=== PATIENT | female | born 1990 | race Caucasian/White ===

== ENCOUNTER 2016-10-07 18:42 | Emergency (ER) | payer OTHER ==
--- NOTE | 2016-10-07 19:17 | ER Document Report ---
ED Medical Screen (RME) - General Chief Complaint: Chest Pain Stated Complaint: CHEST PAIN TRAVEL OUTSIDE OF THE [place] IN LAST 30 DAYS: No - HPI Notes: 10/07/16 19:16 Patient with substernal chest pain ongoing since last night sent from urgent care to rule out PE. - Related Data Allergies/Adverse Reactions: No Known Allergies Allergy (Verified 10/07/16 18:48) Past Medical History Endocrine Medical History: Reports: Hx Diabetes Mellitus Type 1 Renal/ Medical History: Denies: Hx Peritoneal Dialysis Review of Systems - Review of Systems Cardiovascular: Chest pain -: Yes All other systems reviewed and negative Physical Exam - Vital signs Vitals: Temp Pulse Resp BP Pulse Ox 98.4 F 88 16 112/69 100 10/07/16 18:48 10/07/16 18:48 10/07/16 18:48 10/07/16 18:48 10/07/16 18:48 - Respiratory Respiratory status: No respiratory distress Chest status: Nontender Breath sounds: Normal Chest palpation: Normal Course - Vital Signs Vital signs: Temp Pulse Resp BP Pulse Ox 98.4 F 88 16 112/69 100 10/07/16 18:48 10/07/16 18:48 10/07/16 18:48 10/07/16 18:48 10/07/16 18:48
[2016-10-07 19:31] LABS: ABSOLUTE EOSINOPHILS # (AUTO) 0.1 10^3/uL (0.0-0.6); ABSOLUTE LYMPHOCYTES (AUTO) 2.4 10^3/uL (0.5-4.7); ABSOLUTE MONOCYTES (AUTO) 0.6 10^3/uL (0.1-1.4); ABSOLUTE NEUT (AUTO) 4.2 10^3/uL (1.7-8.2); BASOPHILS % (AUTO) 0.4 % (0-2); EOSINOPHILS % (AUTO) 1.5 % (0-6); HEMATOCRIT 40.9 % (36.0-47.0); HEMOGLOBIN 13.8 g/dL (12.0-15.5); HGB HCT DIFFERENCE 0.5; MEAN CORPUSCULAR HGB CONC 33.8 g/dL (32.0-36.0); MEAN CORPUSCULAR VOLUME 89 fl (80-97); RED BLOOD COUNT 4.61 10^6/uL (3.72-5.28); RED CELL DISTRIBUTION WIDTH 13.2 % (11.5-14.0); SEGMENTED NEUTROPHILS % (AUTO) 57.1 % (42-78); WHITE BLOOD COUNT 7.4 10^3/uL (4.0-10.5)
[2016-10-07 19:36] LABS: PROTHROMBIN TIME 11.8 SEC (11.4-15.4)
[2016-10-07 19:37] LABS: PARTIAL THROMBOPLASTIN TIME 27.5 SEC (23.5-35.8)
[2016-10-07 19:48] LABS: ALANINE AMINOTRANSFERASE 25 U/L (9-52); ALBUMIN 4.3 g/dL (3.5-5.0); ALKALINE PHOSPHATASE 41 U/L (38-126); ANION GAP 10 (5-19); ASPARTATE AMINO TRANSFERASE 21 U/L (14-36); BILIRUBIN,DIRECT 0.1 mg/dL (0.0-0.4); BILIRUBIN,TOTAL 0.3 mg/dL (0.2-1.3); BLOOD UREA NITROGEN 14 mg/dL (7-20); CALCIUM 9.4 mg/dL (8.4-10.2); CARBON DIOXIDE 29 mmol/L (22-30); CHLORIDE 103 mmol/L (98-107); CREATINE KINASE 59 U/L (30-135); CREATININE RESULT 0.64 mg/dL (0.52-1.25); GLUCOSE 287 mg/dL (75-110); POTASSIUM 4.5 mmol/L (3.6-5.0); TOTAL PROTEIN 6.7 g/dL (6.3-8.2)
[2016-10-07 19:55] LABS: D-DIMER < 0.27 ug/mL (0.00-0.50)
[2016-10-07 20:00] LABS: CREATINE KINASE MB 0.22 ng/mL (<4.55)
[2016-10-07 20:03] LABS: TROPONIN I < 0.012 ng/mL
--- NOTE | 2016-10-07 20:19 | ER Document Report ---
ED General - General Chief Complaint: Chest Pain Stated Complaint: CHEST PAIN Mode of Arrival: Ambulatory Information source: Patient Notes: Patient is a 26 year old female who presents with intermittent mid sub-sternal chest pain that started last night suddenly when it woke her up out of her sleep. She states she has never had this pain before. Denies any radiation of pain. Pain at its worst is rated 5/10, currently she rates pain as 2/10. She states pain was worse while raking in her yard earlier today. She has not taken any medication for this. Denies any diaphoresis, SOB, n/v/d. Denies any recent travel, is on oral contraception. Was seen at urgent care today and advised to come to ED to rule out PE. TRAVEL OUTSIDE OF THE [place] IN LAST 30 DAYS: No - Related Data Allergies/Adverse Reactions: No Known Allergies Allergy (Verified 10/07/16 18:48) Past Medical History - Social History Smoking Status: Never Smoker Family History: Reviewed & Not Pertinent Patient has suicidal ideation: No Patient has homicidal ideation: No Endocrine Medical History: Reports: Hx Diabetes Mellitus Type 1 Renal/ Medical History: Denies: Hx Peritoneal Dialysis Review of Systems - Review of Systems Constitutional: See HPI EENT: No symptoms reported Cardiovascular: See HPI Respiratory: See HPI Gastrointestinal: No symptoms reported Genitourinary: No symptoms reported Female Genitourinary: No symptoms reported Musculoskeletal: No symptoms reported Skin: No symptoms reported Hematologic/Lymphatic: No symptoms reported Neurological/Psychological: No symptoms reported Physical Exam - Vital signs Vitals: Temp Pulse Resp BP Pulse Ox 98.4 F 88 16 112/69 100 10/07/16 18:48 10/07/16 18:48 10/07/16 18:48 10/07/16 18:48 10/07/16 18:48 Interpretation: Normal - Notes Notes: PHYSICAL EXAM: CONSTITUTIONAL: Alert and oriented, well-appearing and in no acute distress. Not hypoxic, no tachycardia, VSS. HENT: Normocephalic, atraumatic. Trachea midline. Uvula midline. Moist mucous membranes. EYES: Pupils equal round and reactive to light, EOM intact. Sclera anicteric, conjunctiva are normal. No entrapment. NECK: supple without lymphadenopathy. No midline tenderness or paraspinous muscle spasms. No step-offs or deformities. ROM intact. HEART: Regular rate and rhythm without murmurs, rubs or gallops. LUNGS: CTAB and equal. No wheezes, rales or rhonchi. Chest wall non-tender to palpation. GI: Normactive bowel sounds. Nontender, non-distended. No organomegaly. no CVAT. BACK: nontender, no paraspinous spasm, 5+/5 strengths, DTRs 2+, SLR -. EXTREMITIES: Normal range of motion, no pitting edema. No cyanosis. Cap Refill < 3 seconds. Negative Azael's sign. NEURO: Cranial nerves grossly intact. Normal sensory/motor exams. PSYCH: Normal mood, normal affect. SKIN: Warm and dry. Normal turgor. No rashes or lesions noted. Course - Re-evaluation Re-evalutation: 10/07/16 20:19 Patient seen and examined. Non-reproducible chest pain on exam. Will rule out PE with lab work and d-dimer. 10/07/16 21:00 Review of lab results reveals negative d-dimer and otherwise unremarkable. EKG with NSR and no ST elevation. CXR negative for acute findings. Discussed results with patient - recommended NSAIDs as needed for pain. Patient is very well in appearance, vitals within normal limits. Low clinical suspicion for ACS given clinical history, exam, EKG without ST elevations or depressions, and negative initial troponin. HEART score less than or equal to 3. PE also seems unlikely given clinical history, absence of tachycardia or dyspnea. Well's score of 0. CXR without evidence of pneumothorax or pneumonia. No widened mediastinum. Aortic dissection also seems unlikely given history, symmetric pulses, CXR and vitals. At this time, will discharge with return precautions and follow-up recommendations. Verbal discharge instructions given at the bedside and opportunity for questions given. Medication warnings reviewed. Patient is in agreement with this plan and has verbalized understanding of return precautions and the need for primary care follow-up in the next 24-72 hours. - Vital Signs Vital signs: Temp Pulse Resp BP Pulse Ox 98.4 F 83 16 107/55 L 99 10/07/16 18:48 10/07/16 20:35 10/07/16 20:35 10/07/16 20:35 10/07/16 20:35 - Laboratory Result Diagrams: 10/07/16 19:20 10/07/16 19:20 Laboratory results interpreted by me: 10/07/16 19:20 Glucose 287 H - Diagnostic Test Radiology reviewed: Image reviewed, Reports reviewed Discharge - Discharge Clinical Impression: Chest wall pain, Non-cardiac chest pain Condition: Stable Disposition: HOME, SELF-CARE Additional Instructions: CHEST PAIN OF UNCLEAR CAUSE: The exact cause of your chest pain isn't clear. Fortunately, there is no evidence of a dangerous medical condition. Further testing may be required to find the source of the pain. Most often, we find that this pain is coming from the chest wall -- the muscles or rib joints in the chest. But chest pain can come from the lung and lung lining, the esophagus, the heart valves or heart lining, and even the stomach or gallbladder. Rest. Eat lightly until the pain is gone. We may prescribe medicine for pain and inflammation. You should call the physician immediately if the pain radiates to the shoulder, jaw or arms; if you start to run a fever or develop a cough; or if you develop shortness of breath, or other new or alarming symptoms. NORMAL EXAM AND WORKUP: At this time, your examination and workup show no significant abnormality. No significant abnormal physical findings were noted. All laboratory, EKG, and imaging (x-ray, CT scans, ultrasound) studies that were ordered show no significant abnormality. Although your examination and all studies that were ordered showed no significant abnormal finding, there are no examinations and no studies that are 100% accurate. There is always the possibility that some abnormality could exist and not be detected with physical examination or within the limits and capabilities of laboratory and other studies. You should return or follow up as you were instructed on your visit today for further evaluation if your symptoms do not resolve. CHEST WALL PAIN: Your chest pain may be coming from the chest wall. This is often caused by straining the muscles or joints in the chest during physical activity, direct trauma, coughing, or vigorous vomiting. Persons with arthritis are especially prone to this type of pain, due to inflammation of the cartilage joints near the breast bone. Occasionally, no cause can be found. Rest from strenuous physical activity. This kind of chest pain is usually made worse by movement of the chest. Depending on the symptoms, we may prescribe medicine for pain, muscle relaxation, and antiinflammatory effects. If the pain is new, and seems to be due to muscle strain, cold packs can help. Otherwise, apply gentle warmth to the painful area for 15 minutes every hour or two. You should call contact the doctor immediately if things change. Further evaluation is needed if you develop a fever or cough, if the nature of the pain changes, or if you become short of breath. FOLLOW-UP CARE: If you have been referred to a physician for follow-up care, call the physician s office for an appointment as you were instructed or within the next two days. If you experience worsening or a significant change in your symptoms, notify the physician immediately or return to the Emergency Department at any time for re-evaluation. Prescriptions: Ibuprofen [Motrin 600 Mg Tablet] 600 mg PO TID #15 tablet Referrals: LOBO ROBINS MD [Primary Care Provider] - Follow up as needed
[2016-10-07 20:37] VITALS: BP 107/55
--- NOTE | 2016-10-07 20:46 | EKG REPORT ---
SEVERITY:- NORMAL ECG - SINUS RHYTHM : Confirmed by: Clinton Goldberg 07-Oct-2016 20:45:49
== END 2016-10-07 20:35 | disposition home or self-care (01) ==
LOC: ER 18:42
DX: R07.89 Other chest pain (principal)
CPT/HCPCS: 36415; 71020; 80053; 82550; 82553; 84484; 85025; 85379; 85610; 85730; 93005; 93010; 99285

== ENCOUNTER 2018-12-12 22:12 | Emergency (ER) | payer OTHER ==
[2018-12-12 23:34] VITALS: BP 107/66
--- NOTE | 2018-12-13 00:39 | ER Document Report ---
ED Medical Screen (RME) - General Chief Complaint: Skin Problem Stated Complaint: SWELLING Time Seen by Provider: 12/13/18 00:36 Primary Care Provider: LOBO ROBINS MD [Primary Care Provider] - Follow up as needed Mode of Arrival: Ambulatory Information source: Patient Notes: Patient reports that she was stung by a wasp 2 days ago. Patient states that initially she did not have any significant problems and yesterday that she had some pruritus but no redness. Patient states that today she developed redness that has gradually worsened throughout the day. Patient was concerned because she is an insulin-dependent diabetic. Patient states that her blood sugars have been running slightly elevated. Patient denies any recent injuries to the foot. I have greeted and performed a rapid initial assessment of this patient. A comprehensive ED assessment and evaluation of the patient, analysis of test results and completion of the medical decision making process will be conducted by additional ED providers. TRAVEL OUTSIDE OF THE [place] IN LAST 30 DAYS: No - Related Data Allergies/Adverse Reactions: No Known Allergies Allergy (Verified 10/07/16 18:48) Past Medical History Endocrine Medical History: Reports: Hx Diabetes Mellitus Type 1 Renal/ Medical History: Denies: Hx Peritoneal Dialysis Physical Exam - Vital signs Vitals: Temp Pulse Resp BP Pulse Ox 98.1 F 57 L 18 107/66 100 12/12/18 23:32 12/12/18 23:32 12/12/18 23:32 12/12/18 23:32 12/12/18 23:32 - General General appearance: Appears well Notes: Left great toe erythema and 1+ edema. Course - Vital Signs Vital signs: Temp Pulse Resp BP Pulse Ox 98.1 F 57 L 18 107/66 100 12/12/18 23:32 12/12/18 23:32 12/12/18 23:32 12/12/18 23:32 12/12/18 23:32 Doctor's Discharge - Discharge Referrals: LOBO ROBINS MD [Primary Care Provider] - Follow up as needed
[2018-12-13 01:07] LABS: ABSOLUTE EOSINOPHILS # (AUTO) 0.5 10^3/uL (0.0-0.6); ABSOLUTE LYMPHOCYTES (AUTO) 2.5 10^3/uL (0.5-4.7); ABSOLUTE MONOCYTES (AUTO) 0.5 10^3/uL (0.1-1.4); ABSOLUTE NEUT (AUTO) 2.1 10^3/uL (1.7-8.2); BASOPHILS % (AUTO) 0.5 % (0-2); EOSINOPHILS % (AUTO) 9.6 % (0-6); HEMATOCRIT 43.6 % (36.0-47.0); HEMOGLOBIN 14.4 g/dL (12.0-15.5); LYMPHOCYTES % (AUTO) 44.4 % (13-45); MEAN CORPUSCULAR HEMOGLOBIN 29.3 pg (27.0-33.4); MEAN CORPUSCULAR VOLUME 89 fl (80-97); PLATELET COUNT 178 10^3/uL (150-450); RED BLOOD COUNT 4.91 10^6/uL (3.72-5.28); RED CELL DISTRIBUTION WIDTH 12.5 % (11.5-14.0); SEGMENTED NEUTROPHILS % (AUTO) 37.5 % (42-78); TOTAL CELLS COUNTED % (AUTO) 100 %; WHITE BLOOD COUNT 5.7 10^3/uL (4.0-10.5)
[2018-12-13 01:37] LABS: ALANINE AMINOTRANSFERASE 26 U/L (9-52); ALBUMIN 4.7 g/dL (3.5-5.0); ALKALINE PHOSPHATASE 49 U/L (38-126); ANION GAP 8 (5-19); ASPARTATE AMINO TRANSFERASE 25 U/L (14-36); BILIRUBIN,DIRECT 0.2 mg/dL (0.0-0.4); BILIRUBIN,TOTAL 0.3 mg/dL (0.2-1.3); BLOOD UREA NITROGEN 16 mg/dL (7-20); CARBON DIOXIDE 29 mmol/L (22-30); CHLORIDE 102 mmol/L (98-107); GLUCOSE 152 mg/dL (75-110); POTASSIUM 4.5 mmol/L (3.6-5.0); SODIUM 138.9 mmol/L (137-145); TOTAL PROTEIN 7.3 g/dL (6.3-8.2)
--- NOTE | 2018-12-13 04:11 | ER Document Report ---
ED General - General Chief Complaint: Skin Problem Stated Complaint: SWELLING Time Seen by Provider: 12/13/18 00:36 Primary Care Provider: LOBO ROBINS MD [Primary Care Provider] - Follow up in 3-5 days Mode of Arrival: Ambulatory Notes: Patient is a 28-year-old female presents emergency department with a chief complaint of right great toe pain. She was stung by wasp 2 days ago on her great toe and since then she has had redness and itching. She has been putting topical Benadryl to help with it she noticed. She says it helps a little bit. Patient is a type I diabetic, and she is concerned about possible infection. She is able to walk. She has good range of motion of her right great toe. TRAVEL OUTSIDE OF THE [place] IN LAST 30 DAYS: No - Related Data Allergies/Adverse Reactions: No Known Allergies Allergy (Verified 10/07/16 18:48) Past Medical History - General Information source: Patient - Social History Smoking Status: Unknown if Ever Smoked Family History: Reviewed & Not Pertinent Patient has suicidal ideation: No Patient has homicidal ideation: No Endocrine Medical History: Reports: Hx Diabetes Mellitus Type 1 Renal/ Medical History: Denies: Hx Peritoneal Dialysis Review of Systems - Review of Systems Notes: REVIEW OF SYSTEMS: CONSTITUTIONAL : Denies recent illness. Denies recent unintentional weight loss. Denies fever, chills, or sweats. EENT: Denies eye, ear, throat, or mouth pain, discharge, or symptoms. Denies nasal or sinus congestion. CARDIOVASCULAR: Denies chest pain. RESPIRATORY: Denies shortness of breath, cough, congestion, difficulty breathing, or wheezing. GASTROINTESTINAL: Denies nausea, vomiting, and diarrhea. Denies abdominal pain. Denies constipation. GENITOURINARY: Denies difficulty urinating, burning, blood in urine, urgency or frequency. MUSCULOSKELETAL: Denies neck and back pain. Denies joint pain or swelling. SKIN: See HPI HEMATOLOGIC : Denies easy bruising or bleeding. LYMPHATIC: Denies swollen, painful, enlarged glands. NEUROLOGICAL: Denies no numbness or tingling denies weakness. Denies headache. Denies altered mental status. Denies alteration in speech. PSYCHIATRIC: Denies stress, anxiety, alteration in sleep patterns, or depression. All other systems reviewed and negative. Physical Exam - Vital signs Vitals: Temp Pulse Resp BP Pulse Ox 98.1 F 57 L 18 107/66 100 12/12/18 23:32 12/12/18 23:32 12/12/18 23:32 12/12/18 23:32 12/12/18 23:32 - Notes Notes: PHYSICAL EXAMINATION: GENERAL: Appears well, healthy, well-nourished, no acute distress. HEAD: Normocephalic, atraumatic. EYES: PERRL, conjunctiva normal, all extraocular movements intact, sclera nonicteric ENT: Moist mucous membranes. NECK: Supple, no noticeable swelling, redness, rash. Normal range of motion. LUNGS: Equal breath sounds bilaterally and clear to auscultation. No wheezes rales or rhonchi. CARDIOVASCULAR: S1-S2, regular rate, regular rhythm. Radial pulses 2+, normal. ABDOMEN: Normoactive bowel sounds. Soft, nontender, no guarding, no rebound tenderness, and no masses palpated. EXTREMITIES: Normal strength and range of motion, no pitting or edema. No cyanosis. NEUROLOGICAL: Moves all extremities upon command. Strength 5/5 in all extremities. PSYCH: Normal mood, normal affect. SKIN: Warm, dry. No lesions, ulcerations noted. Normal skin turgor. Cellulitis noted to the left great toe area Course - Re-evaluation Re-evalutation: 12/13/18 04:22 Patient's physical exam is consistent with cellulitis of the left great toe. Her labs that were ordered in triage are unremarkable. She will be started on Keflex. No fluctuance noted or concerning possible abscess on exam. She will follow-up with her primary care provider in regards to this visit. They are in agreement with this plan. Verbal discharge instructions were given to the patient. They verbalized understanding. They are stable for discharge. - Vital Signs Vital signs: Temp Pulse Resp BP Pulse Ox 98.1 F 57 L 18 107/66 100 12/12/18 23:32 12/12/18 23:32 12/12/18 23:32 12/12/18 23:32 12/12/18 23:32 - Laboratory Result Diagrams: 12/13/18 00:51 12/13/18 00:51 Laboratory results interpreted by me: 12/13/18 12/13/18 00:51 00:51 Seg Neutrophils % 37.5 L Eosinophils % 9.6 H Glucose 152 H Discharge - Discharge Clinical Impression: Cellulitis Qualifiers: Site of cellulitis: extremity Site of cellulitis of extremity: toe Laterality: left Qualified Code(s): L03.032 - Cellulitis of left toe Condition: Stable Disposition: HOME, SELF-CARE Additional Instructions: The rash is likely due to infection of your skin. You need to take the ant ibiotics as prescribed. Do not stop even if the rash goes away until you have completed all the antibiotics. The area of redness was traced out here in the emergency department with a marking pen. You need to return to emergency department if the redness spreads outside of this area by more than 2 cm in any direction. You should also return if you develop fevers with temperature greater than 101, persistent vomiting, worsening pain, or have any other symptoms that are concerning to you. You can take Benadryl 50 mg every 6 hours as needed for any itchiness. Prescriptions: Cephalexin Monohydrate [Keflex 500 mg Capsule] 500 mg PO Q6H 7 Days #28 capsule Forms: Return to Work Referrals: LOBO ROBINS MD [Primary Care Provider] - Follow up in 3-5 days
[2018-12-13] MEDS ORDERED: CEPHALEXIN 500 MG CAPSULE PO ONE (04:27)
== END 2018-12-13 04:40 | disposition home or self-care (01) ==
LOC: ER 22:12
DX: L03.032 Cellulitis of left toe (principal); T63.461A Toxic effect of venom of wasps, accidental (unintentional), initial encounter; M79.674 Pain in right toe(s); E10.9 Type 1 diabetes mellitus without complications
CPT/HCPCS: 36415; 80053; 84703; 85025; 99283

== ENCOUNTER → 2019-12-22 | Outpatient (CLI) | payer OTHER ==
--- NOTE | 2019-12-23 08:18 | RADIOLOGY REPORT (SQ) ---
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 TECHNIQUE: Dynamic and static fairchild-scale images acquired of the thyroid gland. Selected additional c olor/power Doppler images recorded. All images stored to PACS. LIMITATIONS: None. FINDINGS: RIGHT LOBE: The right lobe of the thyroid gland measures 5.3 x 1.4 x 1.4 cm, normal size. Homogeneous echotexture. No cystic or solid masses. LEFT LOBE: The left lobe of the thyroid gland measures 5.7 x 1.6 x 1.5 cm, within the upper limits o f normal for size. Homogeneous echotexture. No cystic or solid masses. ISTHMUS: The isthmus measures 5.0 mm in AP diameter, at the upper limits of normal. Homogeneous ech otexture. No cystic or solid masses. OTHER: No other significant finding. IMPRESSION: 1. Examination is unremarkable sonographically. TECHNICAL DOCUMENTATION: JOB ID: [id number] 2010 [employer]- All Rights Reserved Reading location - IP/workstation name: [email or web address]
== END ==
LOC: RAD 16:23
PROVIDERS: ATTEND Clinical Neuropsychologist
DX: E10.9 Type 1 diabetes mellitus without complications (principal); E06.3 Autoimmune thyroiditis; N91.2 Amenorrhea, unspecified; R19.7 Diarrhea, unspecified; R63.4 Abnormal weight loss; R53.83 Other fatigue; E55.9 Vitamin D deficiency, unspecified; E78.00 Pure hypercholesterolemia, unspecified; R68.82 Decreased libido
CPT/HCPCS: 76536

== ENCOUNTER 2020-05-26 11:50 | Emergency (ER) | payer OTHER ==
[2020-05-26] MEDS ORDERED: ONDANSETRON HCL INJ/PF 4 MG/2 ML SDV IV ONE ×2 (12:22→14:45)
[2020-05-26] MEDS ORDERED: NORMAL SALINE 1000 ML 1,000 ML IV ONE (12:22)
--- NOTE | 2020-05-26 12:24 | ER Document Report ---
ED Medical Screen (RME) - General Stated Complaint: VOMITING,FEVER,DIARRHEA Time Seen by Provider: 05/26/20 12:18 Primary Care Provider: LOBO ROBINS MD [Primary Care Provider] - Follow up as needed Notes: Patient presents complaining of nausea vomiting diarrhea today with vomiting x3 episodes with diarrhea x5 episodes. Patient reports low-grade fever last night of 99.5. Patient denies any cough or cold symptoms. Patient denies any concerns about . Patient does have a history of diabetes and states that her blood sugar has been elevated recently. I have greeted and performed a rapid initial assessment of this patient. A comprehensive ED assessment and evaluation of the patient, analysis of test results and completion of the medical decision making process will be conducted by additional ED providers. TRAVEL OUTSIDE OF THE [place] IN LAST 30 DAYS: No - Related Data Allergies/Adverse Reactions: No Known Allergies Allergy (Verified 10/07/16 18:48) Past Medical History Endocrine Medical History: Reports: Hx Diabetes Mellitus Type 1 Renal/ Medical History: Denies: Hx Peritoneal Dialysis Physical Exam - Vital signs Vitals: Temp Pulse Resp BP Pulse Ox 97.8 F 63 18 93/53 L 100 05/26/20 11:56 05/26/20 11:56 05/26/20 11:56 05/26/20 11:56 05/26/20 11:56 - General General appearance: Appears well, Alert Notes: Nontoxic appearance, abdomen not distended Course - Vital Signs Vital signs: Temp Pulse Resp BP Pulse Ox 97.8 F 63 18 93/53 L 100 05/26/20 11:56 05/26/20 11:56 05/26/20 11:56 05/26/20 11:56 05/26/20 11:56 Doctor's Discharge - Discharge Referrals: LOBO ROBINS MD [Primary Care Provider] - Follow up as needed
[2020-05-26 15:06] LABS: ABSOLUTE LYMPHOCYTES (AUTO) 0.7 10^3/uL (0.5-4.7); ABSOLUTE MONOCYTES (AUTO) 0.5 10^3/uL (0.1-1.4); ABSOLUTE NEUT (AUTO) 11.5 10^3/uL (1.7-8.2); BASOPHILS % (AUTO) 0.1 % (0-2); HEMATOCRIT 38.7 % (36.0-47.0); HEMOGLOBIN 12.9 g/dL (12.0-15.5); LYMPHOCYTES % (AUTO) 5.7 % (13-45); MEAN CORPUSCULAR HGB CONC 33.3 g/dL (32.0-36.0); MEAN CORPUSCULAR VOLUME 90 fl (80-97); MONOCYTES % (AUTO) 3.8 % (3-13); PLATELET COUNT 195 10^3/uL (150-450); RED BLOOD COUNT 4.29 10^6/uL (3.72-5.28); RED CELL DISTRIBUTION WIDTH 12.8 % (11.5-14.0); SEGMENTED NEUTROPHILS % (AUTO) 90.4 % (42-78); TOTAL CELLS COUNTED % (AUTO) 100 %; WHITE BLOOD COUNT 12.7 10^3/uL (4.0-10.5)
[2020-05-26 15:15] LABS: VENOUS BLOOD BASE EXCESS -2.6 mmol/L; VENOUS BLOOD PH 7.35 (7.30-7.42)
[2020-05-26 15:31] LABS: ALBUMIN 4.7 g/dL (3.5-5.0); ALKALINE PHOSPHATASE 43 U/L (38-126); ANION GAP 10 (5-19); ASPARTATE AMINO TRANSFERASE 27 U/L (14-36); BILIRUBIN,TOTAL 0.5 mg/dL (0.2-1.3); BLOOD UREA NITROGEN 12 mg/dL (7-20); CALCIUM 9.7 mg/dL (8.4-10.2); CARBON DIOXIDE 26 mmol/L (22-30); CHLORIDE 101 mmol/L (98-107); GLUCOSE 145 mg/dL (75-110); POTASSIUM 4.1 mmol/L (3.6-5.0); TOTAL PROTEIN 7.3 g/dL (6.3-8.2)
[2020-05-26 15:38] LABS: APPEARANCE,URINE SLIGHTLY-CLOUDY; BILIRUBIN,URINE NEGATIVE (NEGATIVE); COLOR,URINE YELLOW; GLUCOSE, URINE >=500 mg/dL (NEGATIVE); KETONES,URINE 80 mg/dL (NEGATIVE); LEUKOCYTE ESTERASE,URINE SMALL (NEGATIVE); NITRITE,URINE NEGATIVE (NEGATIVE); PROTEIN,URINE 100 mg/dL (NEGATIVE); URINE SPECIFIC GRAVITY 1.033; UROBILINOGEN,URINE NEGATIVE mg/dL (<2.0)
--- NOTE | 2020-05-26 15:41 | ER Document Report ---
ED General - General Chief Complaint: Nausea/Vomiting/Diarrhea Stated Complaint: VOMITING,FEVER,DIARRHEA Time Seen by Provider: 05/26/20 12:18 Primary Care Provider: LOBO ROBINS MD [Primary Care Provider] - Follow up as needed TRAVEL OUTSIDE OF THE [place] IN LAST 30 DAYS: No - HPI Notes: Patient is a 30-year-old female with a past medical history of Jesus's thyroiditis and type 1 diabetes with an insulin pump who presents for abdominal cramping, nausea, diarrhea. Patient states symptoms started today. She describes abdominal cramping in the periumbilical area. She states she did start her period when symptoms started and abdominal cramping feels like normal menstrual cramps. She is also had several episodes of nonbilious vomiting. She also describes several episodes of diarrhea. No chest pain or shortness of breath. No cough. No Covid exposures. States her sugar has been running around the 100s. - Related Data Allergies/Adverse Reactions: No Known Allergies Allergy (Verified 10/07/16 18:48) Home Medications: naltrexone, de icer element winder thyroid, vit b complex, vit d, probiotic, fiasp insulin Past Medical History - General Information source: Patient - Social History Smoking Status: Never Smoker Chew tobacco use (# tins/day): No Frequency of alcohol use: None Drug Abuse: None Family History: Reviewed & Not Pertinent Patient has homicidal ideation: No Endocrine Medical History: Reports: Hx Diabetes Mellitus Type 1 Renal/ Medical History: Denies: Hx Peritoneal Dialysis Review of Systems - Review of Systems Notes: CONSTITUTIONAL: No fever, fatigue or weight loss. SKIN: No rash. HENT: No congestion, ear pain, or sore throat. EYES: No recent vision problems or eye pain. CARDIOVASCULAR: No chest pain or edema. RESPIRATORY: No cough, shortness of breath, congestion, or wheezing. GASTROINTESTINAL: Positive for abdominal cramping, diarrhea, vomiting. GENITOURINARY: No dysuria. MUSCULOSKELETAL: No joint pain or swelling. LYMPHATIC: No swollen glands. NEUROLOGIC: No seizures. No headache, focal weakness or sensory changes. HEMATOLOGIC: No unusual bruising or bleeding. PSYCHIATRIC: No depression or anxiety. Physical Exam - Vital signs Vitals: Temp Pulse Resp BP Pulse Ox 97.8 F 63 18 93/53 L 100 05/26/20 11:56 05/26/20 11:56 05/26/20 11:56 05/26/20 11:56 05/26/20 11:56 - General General appearance: Appears well Notes: VITAL SIGNS: Within normal limits. GENERAL: No acute distress, non-toxic appearance. HEAD: Normal with no signs of head trauma. EYES: EOMI, conjunctiva normal, no discharge. EARS: Hearing grossly intact. NOSE: Normal. NECK: Normal range of motion, no tenderness, supple, no lymphadenopathy, No adenopathy, no JVD. CHEST: Clear breath sounds bilaterally. No wheezes, rales, or rhonchi. CARDIAC: Regular rate and rhythm. S1 and S2, without murmurs, gallops, or rubs. VASCULAR: No Edema. ABDOMEN: Normal and soft with no tenderness, no masses or pulsatile masses. GENITOURINARY: Normal, No tenderness MUSCULOSKELETAL: Good range of motion of all major joints. Extremities without clubbing, cyanosis or edema. NEUROLOGICAL: Alert and oriented x 3. No focal sensory or strength deficits. Speech normal. Follows commands appropriately. PSYCHIATRIC: Normal Affect, judgement and mood. SKIN: Normal appearance with no rashes or lesions. Course - Re-evaluation Re-evalutation: 05/26/20 15:40 Patient appears well on exam. She has no evidence of DKA. She states she feels much better after nausea medicine. She states her abdominal pain has completely resolved and she is not requiring any pain medicine. She has no evidence of acidosis. She does have some ketones in her urine which I suspect is from dehydration from the diarrhea and vomiting. Did offer patient Covid test due to her symptoms but she declined. Was told to rest, hydrate. She was given strict return precautions. Patient is very agreeable to the plan. 05/26/20 20:50 - Vital Signs Vital signs: Temp Pulse Resp BP Pulse Ox 97.9 F 75 18 91/58 L 99 05/26/20 16:44 05/26/20 18:41 05/26/20 18:41 05/26/20 18:41 05/26/20 18:41 - Laboratory Result Diagrams: 05/26/20 14:40 05/26/20 14:40 Laboratory results interpreted by me: 05/26/20 05/26/20 05/26/20 14:30 14:40 14:40 WBC 12.7 H Lymph % (Auto) 5.7 L Absolute Neuts (auto) 11.5 H Seg Neutrophils % 90.4 H Glucose 145 H Urine Protein 100 H Urine Glucose (UA) >=500 H Urine Ketones 80 H Urine Blood LARGE H Ur Leukocyte Esterase SMALL H Urine Ascorbic Acid 40 H Discharge - Discharge Clinical Impression: Nausea vomiting and diarrhea Condition: Stable Disposition: HOME, SELF-CARE Instructions: Diarrhea, Nonspecific ([facility]), Vomiting ([facility]) Additional Instructions: Work-up today is reassuring. Please make sure you are staying hydrated. Please return to the ER for any return of symptoms. Please follow-up with your family doctor. Prescriptions: Ondansetron [Zofran Odt 4 mg Tablet] 4 mg PO Q6H PRN 7 Days #10 tab.rapdis PRN Reason: Referrals: LOBO ROBINS MD [Primary Care Provider] - Follow up as needed
[2020-05-26 18:42] VITALS: BP 91/58
== END 2020-05-26 18:42 | disposition home or self-care (01) ==
LOC: ER 11:50
DX: R11.2 Nausea with vomiting, unspecified (principal); R19.7 Diarrhea, unspecified; R50.9 Fever, unspecified; R10.33 Periumbilical pain; E10.9 Type 1 diabetes mellitus without complications; Z79.4 Long term (current) use of insulin; Z79.899 Other long term (current) drug therapy
CPT/HCPCS: 99284; 96360; 36415; 87086; 82010; 83690; 84703; 85025; 87088; 80053; 81001; 87186; 82803; J7030